=== PATIENT | male | born 1995 | race Caucasian/White ===

== ENCOUNTER 2021-11-01 18:24 | Emergency (ER) | payer OTHER | END 2021-11-01 20:15 | disposition home or self-care (01) | LOC: ER1 18:24 | DX: S66.922A Laceration of unspecified muscle, fascia and tendon at wrist and hand level, left hand, initial encounter (principal); F17.200 Nicotine dependence, unspecified, uncomplicated; W26.8XXA Contact with other sharp object(s), not elsewhere classified, initial encounter | CPT/HCPCS: 90471; 90715; 99282 ==